=== PATIENT | male | born 1965 | race Caucasian/White ===

== ENCOUNTER → 2016-05-21 | Outpatient (REF) | payer OTHER ==
[~2016-05-21] MED LIST: ASPI-586 PO; ASPI325T4 PO; MTP25TSR PO; OMEP20CA6 PO; RANO10003 PO; SIMV20TA PO; WARF5TAB PO
[2016-05-21 11:51] LABS: ALBUMIN 3.9 g/dL (3.4-5.0); ANION GAP 12.8 MEQ/L (3-15); TOTAL PROTEIN 6.7 g/dL (6.4-8.5)
== END ==
LOC: LAB 10:11
PROVIDERS: ATTEND Nurse Practitioner Family
DX: I25.10 Atherosclerotic heart disease of native coronary artery without angina pectoris (principal)
CPT/HCPCS: 80053; 80061